=== PATIENT | male | born 1985 | race Asian ===

== ENCOUNTER 2021-11-16 08:40 | Outpatient (CLI) | payer BC, SELFPAY ==
[2021-11-16 13:43] LABS: Cholesterol* 183 mg/dL (90-199)
[2021-11-16 13:44] LABS: HDL Cholesterol* 41 mg/dL (>=40); LDL Cholesterol Calculated 124 mg/dL (<100); Triglycerides* 90 mg/dL (40-149)
== END 2021-11-16 08:41 | disposition home or self-care (01) ==
LOC: LKVREF 08:42
PROVIDERS: PCP Physician Assistant Medical; Visit Provider Physician Assistant Medical
DX: Z00.00 Encounter for general adult medical examination without abnormal findings (principal); I11.0 Hypertensive heart disease with heart failure; Z13.6 Encounter for screening for cardiovascular disorders
CPT/HCPCS: 80061